=== PATIENT | male | born 1960 | race Caucasian/White ===

== ENCOUNTER → 2017-10-28 | Day surgery (SDC) | payer OTHER ==
[2017-10-26 13:14] LABS: BASOPHILS % 0.6 % (0.0-1.0); EOSINOPHILS # (AUTO) 0.3 (0.0-0.4); EOSINOPHILS % 4.1 % (0.0-6.0); HEMATOCRIT 29.7 % (38.2-49.6); HEMOGLOBIN 9.8 g/dL (14.0-18.0); LYMPHOCYTES # (AUTO) 1.1 (1.0-3.2); LYMPHOCYTES % 16.9 % (18.0-39.1); MEAN CORPUSCULAR HEMOGLOBIN 32.3 pg (28-32); MONOCYTES # (AUTO) 1.1 (0.2-0.8); MONOCYTES % 16.6 % (4.4-11.3); NEUTROPHILS # (AUTO) 3.9 (2.1-6.9); PLATELET COUNT 243 x10e3/uL (140-360); RED BLOOD COUNT 3.03 x10e6/uL (4.3-5.7); RED CELL DISTRIBUTION WIDTH 17.1 % (11.7-14.4)
[2017-10-26 13:34] LABS: ANION GAP 12.7 mmol/L (8-16); CALCIUM 8.9 mg/dL (8.4-10.2); CREATININE, SERUM 2.15 mg/dL (0.72-1.25); POTASSIUM 4.7 mmol/L (3.5-5.1)
[~2017-10-28] MED LIST: ACYCLOVIR200 MG PO; ASPIRIN81 MG PO; DILTIAZEM 24HR180 M1 PO; LIDOCAINE HCL 2% LOCAL INJ 5 ML SDV VIAL INJ ONE; LISINOPRIL10 MG PO; PROPOFOL IV EMULSION 10 MG/ML 20 ML VIAL ONE; REVLIMID10 MG PO
--- OUTSIDE RECORDS SUMMARY | 2017-10-28 13:11 | XMS REPORT | Clinical Summary ---
Author Author [facility] Address Unknown Phone Unavailable Care Team Providers Care Property Underwriter Name Role Phone Asked, Pcp PCP Unavailable Allergies No Known Allergies Current Medications Prescription Sig. Disp. Refills Start End Date Status Date acyclovir (ZOVIRAX) 800 Take 800 mg by mouth Active MG tablet once. sildenafil (VIAGRA) 25 MG Take 25 mg by mouth daily Active tablet as needed for erectile dysfunction. lisinopril Take 20 mg by mouth Active (PRINIVIL,ZESTRIL) 20 mg daily. tablet aspirin (ECOTRIN) 81 MG Take 81 mg by mouth Active enteric coated tablet daily. Active Problems Problem Noted Date Multiple myeloma 09/06/2017 Multiple myeloma Overview: 1. 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 A. SPEP with 0.5g/dl IgG kappa with RYAN Bone marrow 06/23/17 showed 15% plasma cells. [place] 50.51, Lambda 12.33, K:L ratio 4.10 on 06/09/17. B2M 3.5, Creatinine 2.5, UPEP is negative, and PET scan is negative. B. Stage II myeloma, and started RVD 07/2017 and is now completed 3 cycles Anemia ED (erectile dysfunction) HTN (hypertension) with goal to be determined CKD (chronic kidney disease) Overview: CREA OF 2.5 Encounters Date Type Specialty Care Team Description 10/27/2017 [facility] Pulmonology Alana Vega MD Encounter 10/27/2017 Ancillary Hematology and Oncology Alana Vega MD Multiple myeloma, Orders remission status unspecified; Shortness of breath 10/25/2017 [facility] Procedural Cardiology Alana Vega MD Multiple myeloma, Encounter remission status unspecified; Shortness of breath 10/25/2017 Ancillary Hematology and Oncology Alana Vega MD Multiple myeloma, Orders remission status unspecified; Shortness of breath 10/10/2017 Telephone Hematology and Oncology Tiffanie Hutchinson RN 10/04/2017 Orders Only Hematology and Oncology Tiffanie Hutchinson RN Multiple myeloma, remission status unspecified (Primary Dx); Shortness of breath 09/07/2017 Telephone Hematology and Oncology Tiffanie Hutchinson RN 09/06/2017 [facility] Hematology and Oncology Alana Vega MD Multiple myeloma not Encounter having achieved remission (Primary Dx) after 10/27/2016 Family History Medical History Relation Name Comments Colon cancer Father 07/2017 of colon cancer at age 85 No Known Problems Mother natural causes Lung cancer Paternal Heavy smoker and of Lung cancer Uncle Relation Name Status Comments Father Mother Paternal Uncle Social History Tobacco Use Types Packs/Day Years Used Date Never Smoker Smokeless Tobacco: Chew Current User Tobacco Cessation: Ready to Quit: No; Counseling Given: Yes Comments: more then 20 years, Sex Assigned at Date Recorded Not on file Last Filed Vital Signs Vital Sign Reading Time Taken Blood Pressure 140/79 10/25/2017 8:45 AM CDT Pulse 60 10/25/2017 8:45 AM CDT Temperature 36.3 C (97.4 F) 09/06/2017 9:51 AM [employer] Respiratory Rate 20 09/06/2017 9:51 AM [employer] Oxygen Saturation 100% 10/25/2017 8:45 AM CDT Inhaled Oxygen - - Concentration Weight 97.5 kg (215 lb) 10/25/2017 8:45 AM CDT Height 188 cm (6' 2") 10/25/2017 8:45 AM CDT Body Mass Index 27.6 10/25/2017 8:45 AM CDT Plan of Treatment Date Type Specialty Care Team Description 11/03/2017 Appointment Hematology and Oncology Alana Vega MD [address] [place] [address] 11/04/2017 Appointment Radiology Alana Vega MD [address] [place] [address] [phone] Health Maintenance Due Date Last Done Comments COLONOSCOPY 2012 INFLUENZA VACCINE 03/15/2017 Procedures Procedure Name Priority Date/Time Associated Diagnosis Comments CV STRESS TEST NUCLEAR Routine 10/25/2017 Multiple myeloma, Results for this CARDIO 9:41 AM CDT remission status procedure are in the unspecified results section. Shortness of breath after 10/27/2016 Results * Cv exercise treadmill stress (no imaging) (10/25/2017 9:41 AM) Component Value Ref Range Resting HR 61 Resting BP 140 Peak MET Achieved 1.0 Protocol Name REGADENO Time in Exercise Phase 00:01:00 Max Systolic BP 140 Max Diastolic BP 79 Max Heart Rate 96 Max Predicted Heart Rate 166 Target HR Formula (220 - Age)*100% Test Indication SOB Arrhy During Ex ECG Interp Before EX ECG Interp During Ex Ex Summary Comment Overall HR Response to Exercise Overall BP Response To Exercise Reason for Termination Stress Test Impression -Waveform interpreted in report associated with image study. No interpretation is provided as part of this Stress ECG report.-Electronically Signed By Poly SIMMONS, Tiago Christianson ([id number]), commissioning editor Radha Tian ([id number]) on 10/25/2017 10:55:34 AM Specimen Performing Laboratory [facility] [address] [place] [address] * CV myocardial perfusion (10/25/2017 9:41 AM) Specimen Performing Laboratory [facility] [address] [place] [address] Narrative Nuclear Cardiology and Cardiac CT [address] [place] [address] Myocardial Perfusion Imaging Report Stress ECG tracings are available in MUSE, Geni and CV Web All ECG interpretations are included in this report Pat.Name:Precious DOW.ID:[id number] St.Date: 10/25/2017 Refer.MD:ALANA VEGA MD Exam Time: 9:50:00 AM Study Type:Myocardial Perfusion Imaging Height:74inWeight:215lb BSA: 2.24 m2 DOBAge:1960,56Y Sex: MALEBP: 140/79 HR:60 bpm Nuclear Tech:ALVARO Blakely, RUTHIE/ALVARO Sanders Pat. Stat.:OutpatientNuclear Event ID:[id number] Order ID:[id number] Reason for Study:Pre-Op CV Exam for Stem Cell Transplant History / Clinical:Hypertension, Multiple Myeloma, Chemotherapy Procedures:Stress only Risk Factors:Hypertension Clinical Symptoms:Regadenoson Physical Exam:S1, S2 Surgery: Outpatient Medications:Aspirin, Lisinopril SUMMARY: SCINTIGRAPHIC RESULTS Perfusion Defect Size (% LV) 0 % Total 0 % Ischemia 0 % Scar Left Ventricular Perfusion Results There is normal tracer distribution throughout the myocardium during stress. Gated SPECT Results The post-stress left ventricular ejection fraction is 72 % with normal regional wall motion and left ventricular thickening.Left ventricular end-diastolic volume is 185 ml; end-systolic volume is51 ml. The left ventricle is moderately enlarged at stress.The right ventricle is enlarged with normal wall motion. Conclusion Normal regadenoson Tc-99m tetrofosmin myocardial perfusion study. The left ventricular ejection fraction is normal. Comments Patients with a normal stress myocardial perfusion study have a low (< 1%) annual risk of cardiac or nonfatal myocardial infarction. The mild reduction in anteroapical wall counts during stress is probably due to soft tissue attenuation artifact rather than coronary artery disease which resolves with prone imaging. Study Quality/Artifacts The study quality is good. Comparison to Previous Study None available. STRESS: Baseline Vital Signs:Intervention: Regadenoson 0.4mg /5ml IV over 10 seconds followed by radiotracer injection and 5ml saline flush ECG: Normal Sinus Rhythm HR:60 BP:140/79 Stress Test Results: Target HR: 141 Symptoms and Complications: Arrhythmias: None Terminated: As per Regadenoson protocol Symptoms:None Complications: None Conclusions: Normal heart rate response to pharmacological stress, Normal blood pressure response to pharmacological stress Stress ECG Interp: No ischemic ST segment change occurred with stress. Signed 10/25/2017 05:27 PM Tiago Pang MD Procedure Note Interface, Radiology Results In - 10/25/2017 5:27 PM CDT Nuclear Cardiology and Cardiac CT [address] [place] [address] Myocardial Perfusion Imaging Report Stress ECG tracings are available in [employer], Geni and [employer] All ECG interpretations are included in this report Pat.Name: JAMIE DOW Pat.ID: [id number] St.Date: 10/25/2017 Refer.MD: ALANA VEGA MD Exam Time: 9:50:00 AM Study Type:Myocardial Perfusion Imaging Height: 74in Weight: 215lb BSA: 2.24 m2 Age: 6 1960,56Y Sex: MALE BP: 140/79 HR: 60 bpm Nuclear Tech:ALVARO Blakely, [facility]Natty/ALVARO Sanders Pat. Stat.:Outpatient Nuclear Event ID:[id number] Order ID: [id number] Reason for Study:Pre-Op CV Exam for Stem Cell Transplant History / Clinical:Hypertension, Multiple Myeloma, Chemotherapy Procedures:Stress only Risk Factors:Hypertension Clinical Symptoms:Regadenoson Physical Exam:S1, S2 Surgery: Outpatient Medications:Aspirin, Lisinopril SUMMARY: SCINTIGRAPHIC RESULTS Perfusion Defect Size (% LV) 0 % Total 0 % Ischemia 0 % Scar Left Ventricular Perfusion Results There is normal tracer distribution throughout the myocardium during stress. Gated SPECT Results The post-stress left ventricular ejection fraction is 72 % with normal regional wall motion and left ventricular thickening. Left ventricular end-diastolic volume is 185 ml; end-systolic volume is 51 ml. The left ventricle is moderately enlarged at stress. The right ventricle is enlarged with normal wall motion. Conclusion Normal regadenoson Tc-99m tetrofosmin myocardial perfusion study. The left ventricular ejection fraction is normal. Comments Patients with a normal stress myocardial perfusion study have a low (< 1%) annual risk of cardiac or nonfatal myocardial infarction. The mild reduction in anteroapical wall counts during stress is probably due to soft tissue attenuation artifact rather than coronary artery disease which resolves with prone imaging. Study Quality/Artifacts The study quality is good. Comparison to Previous Study None available. STRESS: Baseline Vital Signs: Intervention: Regadenoson 0.4mg/5ml IV over 10 seconds followed by radiotracer injection and 5ml saline flush ECG: Normal Sinus Rhythm HR: 60 BP: 140/79 Stress Test Results: Target HR: 141 Symptoms and Complications: Arrhythmias: None Terminated: As per Regadenoson protocol Symptoms: None Complications: None Conclusions: Normal heart rate response to pharmacological stress, Normal blood pressure response to pharmacological stress Stress ECG Interp: No ischemic ST segment change occurred with stress. Signed 10/25/2017 05:27 PM Tiago Pang MD after 10/27/2016 Insurance Payer Benefit Subscriber ID Type Phone Address Plan / Group CIGNA CIGNA xxxxxxxxxxx [facility] C[facility] x[facility]xx HMO ACCESS/NET WORK JAMIE DOW BMT Self 1960 Home: [id number] [place] [address]
== END | disposition home or self-care (01) ==
LOC: OR 13:10
PROVIDERS: ATTEND Surgery
DX: K52.9 Noninfective gastroenteritis and colitis, unspecified (principal); D50.9 Iron deficiency anemia, unspecified; K57.30 Diverticulosis of large intestine without perforation or abscess without bleeding; I12.9 Hypertensive chronic kidney disease with stage 1 through stage 4 chronic kidney disease, or unspecified chronic kidney disease; N18.9 Chronic kidney disease, unspecified; R00.1 Bradycardia, unspecified; Z01.810 Encounter for preprocedural cardiovascular examination
CPT/HCPCS: 36415; 45380; 80048; 85025; 88305; 88312; 93005; J2001